=== PATIENT | male | born 1995 | race American Indian/Alaskan Native ===

== ENCOUNTER 2017-03-17 18:30 | Emergency (ER) | payer OTHER ==
--- NOTE | 2017-03-17 21:16 | Cat Scan Report ---
FINAL REPORT PROCEDURE: CT head without contrast. TECHNIQUE: Computerized tomography of the head was performed without contrast material. HISTORY: Head injury. COMPARISON: No prior studies are available for comparison. FINDINGS: The ventricles are normal in size. The winchester matter and white matter appear normal. There are no mass lesions. There is no intracranial hemorrhage. The calvarium appears intact. The mastoid air cells and visualized paranasal sinuses are well aerated. IMPRESSION: Normal study.
[2017-03-18] MEDS ORDERED: NACL 0.9% 1000 ML 1,000 ML IV ONE (00:26)
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
[2017-03-18 02:44] VITALS: BP 102/59
--- NOTE | 2017-03-18 09:28 | XRay Report ---
LEFT FOREARM: History: Left forearm pain AP and lateral views of the forearm demonstrate normal mineralization and contours for this patient's age. No destructive changes are noted and the adjacent soft tissues are normal. IMPRESSION: Normal left forearm.
== END 2017-03-18 03:20 | disposition home or self-care (01) ==
LOC: ED 18:30
DX: S09.90XA Unspecified injury of head, initial encounter (principal); M79.632 Pain in left forearm; V49.59XA Passenger injured in collision with other motor vehicles in traffic accident, initial encounter; V49.49XA Driver injured in collision with other motor vehicles in traffic accident, initial encounter; X58.XXXA Exposure to other specified factors, initial encounter; Y93.9 Activity, unspecified; Y92.9 Unspecified place or not applicable; Y99.9 Unspecified external cause status
CPT/HCPCS: 70450; 93005; 93010

== ENCOUNTER 2018-08-25 14:40 | Emergency (ER) | payer MEDICAID, OTHER ==
--- NOTE | 2018-08-25 15:01 | Emergency Department Report ---
Chief Complaint: Urogenital-Male Stated Complaint: STD TESTING Time Seen by Provider: 08/25/18 14:49 - HPI History of Present Illness: This is a 23-year-old male nontoxic, well nourished in appearance, no acute signs of distress presents to the ED for STD check-up. Patient denies any testicular pain or swelling. Patient denies any penile ulcers or lesions. Patient denies any penile discharge. Patient denies any nausea, vomiting, chest pain, shortness of breathe, fever, chills, headache, back pain, numbness, tingling, stiff neck. Patient denies any urinary symptoms. Patient denies any allergies or PMH. - Exam Vital Signs: Vital Signs 08/25/18 14:46 Temperature 98.9 F Pulse Rate 83 Respiratory 16 Rate Blood Pressure 122/71 O2 Sat by Pulse 99 Oximetry Physical Exam: GENERAL: The patient is a well-developed, well-nourished in no apparent distress. Patient is alert and acting appropriately for age. Alert and oriented 3, no apparent distress, normal gait, atraumatic. ABDOMEN: Soft, nontender, and nondistended. Positive bowel sounds. No hepatosplenomegaly was noted. No guarding or rebound tenderness, negative epigastric bruit. Negative psoas sign, negative carter sign, negative McBurneys sign MSE screening note: Focused history and physical exam performed. Due to findings the following was ordered: ED Medical Decision Making - Medical Decision Making This is a 23-year-old male that presents with nonmedical emergency. Patient is stable and was examined by me. Patient is asymptomatic and denies any symptoms. Patient states he just wants to be tested for STD. [employer] Vaccinator has approached patient for a co-pay but patient refused. I will refer the patient [facility] and health Department. At time of discharge, the patient does not seem toxic or ill in appearance. No acute signs of distress noted. Patient agrees to discharge treatment plan of care. No further questions noted by the patient. ED Disposition for MSE Clinical Impression: Possible exposure to STD Disposition: Z- MED SCREENING EXAM-LEFT Is pt being admited?: No Does the pt Need Aspirin: No Condition: Stable Instructions: Safe Sex (ED) Additional Instructions: Follow-up with a primary care doctor in 3-5 days or if symptoms worsen and continue return to emergency room as soon as possible. Referrals: PRIMARY CARE, [Referring] - 3-5 Days MINOO BROOKE MD [Staff Physician] - 3-5 Days [facility] [Outside] - 3-5 Days [facility] [Outside] - 3-5 Days
== END 2018-08-25 14:56 | disposition left against medical advice (07) ==
LOC: ED 14:40
DX: Z20.2 Contact with and (suspected) exposure to infections with a predominantly sexual mode of transmission (principal)
CPT/HCPCS: 99281

== ENCOUNTER 2019-06-21 10:27 | Emergency (ER) | payer SELFPAY ==
[2019-06-21 10:37] VITALS: BP 102/56
== END 2019-06-21 11:19 ==
LOC: ED 10:27
DX: Z11.3 Encounter for screening for infections with a predominantly sexual mode of transmission (principal); Z53.21 Procedure and treatment not carried out due to patient leaving prior to being seen by health care provider